=== PATIENT | male | born 1980 | race Caucasian/White ===

== ENCOUNTER 2024-10-29 13:42 | Outpatient (CLI) | payer OTHER, SELFPAY | END 2024-10-29 13:43 | disposition home or self-care (01) | PROVIDERS: PCP Registered Nurse; Visit Provider Registered Nurse | DX: I10 Essential (primary) hypertension (principal); Z13.220 Encounter for screening for lipoid disorders; Z13.29 Encounter for screening for other suspected endocrine disorder | CPT/HCPCS: 80053; 80061; 82043; 82570; 84443 ==

== ENCOUNTER 2025-08-26 08:01 | Outpatient (CLI) | payer OTHER, SELFPAY | END 2025-08-26 08:02 | disposition home or self-care (01) | LOC: RAD 08:03 | PROVIDERS: Visit Provider Nurse Practitioner Family | DX: I10 Essential (primary) hypertension (principal); I51.7 Cardiomegaly | CPT/HCPCS: 93306 ==